=== PATIENT | female | born 1980 | race Caucasian/White ===

== ENCOUNTER → 2020-08-28 08:31 | Outpatient (CLI) | payer OTHER, SELFPAY ==
[2020-08-28 20:23] LABS: SARS-CoV-2 RNA PCR Negative
== END ==
PROVIDERS: PCP Family Medicine; Visit Provider Physician Assistant
DX: R05 Cough (principal); R09.81 Nasal congestion; Z20.822 Contact with and (suspected) exposure to COVID-19
CPT/HCPCS: C9803; U0003; U0005

== ENCOUNTER 2022-04-29 12:23 | Outpatient (CLI) | payer OTHER, SELFPAY ==
--- NOTE | ~2022-04-29 | US_ITS ---
EXAMINATION: US venous doppler [facility] DATE: 04/29/2022 12:56 INDICATION: Left lower limb swelling TECHNIQUE: Grayscale ultrasound images without and with compression and Doppler ultrasound images of the left lower extremity veins were obtained. COMPARISON: None. FINDINGS: The visualized portions of left common femoral vein, profunda (deep) femoral vein, femoral vein, popl iteal vein, peroneal veins, posterior tibial veins, gastrocnemius vein and greater saphenous vein out flow are patent. IMPRESSION: 1. No deep venous thrombosis in the left lower limb. Reviewed, dictated and finalized at location A. OR ESTIMATOR
== END 2022-04-29 12:24 | disposition home or self-care (01) ==
PROVIDERS: PCP Family Medicine; Visit Provider Physician Assistant
DX: M79.89 Other specified soft tissue disorders (principal)
CPT/HCPCS: 93971

== ENCOUNTER → 2022-12-24 15:13 | Outpatient (CLI) | payer OTHER, SELFPAY ==
--- NOTE | ~2022-12-24 | XR_ITS ---
XR chest 2V 12/24/2022 16:06 Indication: Cough Procedure: 2 view chest Comparison: 03/12/2017 Findings: Heart size normal. Left lower lobe airspace disease, compatible with pneumonia. No signific ant effusion. No edema or pneumothorax. Impression: 1: Left lower lobe pneumonia. Reviewed, dictated and finalized at location A. Impression: 1: Left lower lobe pneumonia.
== END ==
PROVIDERS: PCP Family Medicine; Visit Provider Physician Assistant
DX: J18.9 Pneumonia, unspecified organism (principal)
CPT/HCPCS: 71046

== ENCOUNTER → 2023-02-12 15:29 | Outpatient (CLI) | payer OTHER, SELFPAY ==
--- NOTE | ~2023-02-12 | XR_ITS ---
Clinical Indication: Pneumonia PA and lateral views of the chest: Comparison: 12/24/2022 Findings: The lungs are clear, without evidence of focal consolidation or pleural effusion. Cardiome diastinal silhouette is within normal limits. Bones and soft tissues are unremarkable. Impression: Normal chest. Reviewed, dictated and finalized at location . Impression: Normal chest.
== END ==
PROVIDERS: PCP Family Medicine; Visit Provider Family Medicine
DX: J18.9 Pneumonia, unspecified organism (principal)
CPT/HCPCS: 71046